=== PATIENT | male | born 1970 | race African-American/Black ===

== ENCOUNTER 2017-03-06 00:30 | Emergency (ER) | payer OTHER ==
[~2017-03-06] VITALS: Ht 182.9 cm; Wt 108.9 kg
[~2017-03-06 00:30] MED LIST: AMLO10TA4; ASPI81TA31 PO; TERA10CA4 PO
[2017-03-06] MEDS ORDERED: TELM40TA2 PO (00:50)
[2017-03-06 01:37] LABS: ALBUMIN 3.3 g/dL (3.4-5.0); BILIRUBIN,DIRECT 0.1 mg/dL (0.0-0.2); BILIRUBIN,TOTAL 0.2 mg/dL (0.2-1.0); CALCIUM 8.1 mg/dL (8.5-10.1); CREATININE 1.3 mg/dL (0.6-1.3); POTASSIUM 3.3 mmol/L (3.5-5.1); TOTAL PROTEIN, SERUM 7.3 g/dL (6.4-8.2)
[2017-03-06 01:39] LABS: BASOPHILS % (AUTO) 0.6 % (0.0-2.0); EOSINOPHILS # (AUTO) 0.4 K/uL (0.0-0.7); EOSINOPHILS % (AUTO) 8.2 % (0.0-7.0); HEMATOCRIT 41.1 % (40-50); HEMOGLOBIN 13.7 G/DL (14.0-18.0); LYMPHOCYTES # (AUTO) 1.7 K/uL (20.0-40.0); LYMPHOCYTES % (AUTO) 35.6 % (20.5-51.5); MEAN CORPUSCULAR HEMOGLOBIN 26.6 UUG (27.0-31.0); MEAN CORPUSCULAR HGB CONC 33 g/dL (32.0-37.0); MEAN CORPUSCULAR VOLUME 79.8 FL (82.0-92.0); MONOCYTES # (AUTO) 0.5 K/uL (2.0-10.0); MONOCYTES % (AUTO) 9.7 % (0.0-11.0); NEUTROPHILS # (AUTO) 2.2 K/uL (1.8-8.9); NEUTROPHILS % (AUTO) 45.9 % (38.5-71.5); PLATELET COUNT (AUTO) 162 K/UL (150-450); RED BLOOD CELL COUNT(AUTO) 5.15 MIL/UL (4.7-6.1); RED CELL DISTRIBUTION WIDTH 14.9 % (11.5-14.5); WHITE BLOOD COUNT (AUTO) 4.8 K/UL (4.0-11.2)
[2017-03-06 02:10] LABS: *BILIRUBIN,URIN NEGATIVE (NEGATIVE); *BLOOD, URINE NEGATIVE (NEGATIVE); *CLARITY,URINE CLEAR (CLEAR); *COLOR,URINE YELLOW (YELLOW); *KETONES,URINE NEGATIVE (NEGATIVE); *PROTEIN,URINE NEGATIVE (NEGATIVE); *UROBILINOGEN,URINE 0.2 E.U./dl (NORMAL); LEUKOCYTE ESTERASE ,URINE 1+ (NEGATIVE); NITRITE, URINE NEGATIVE (NEGATIVE); UGLUCOSE NEGATIVE (NEGATIVE)
[2017-03-06 02:14] LABS: BACTERIA,URINE FEW /HPF (NONE SEEN); RBC,URINE 0-3 /HPF (0-3); SQUAMOUS EPITHELIAL CELL,UR FEW /HPF (NONE SEEN)
[2017-03-06] MEDS ORDERED: CIPROFLOXACIN HCL 250 MG TABLET PO ONE (02:30)
[2017-03-06] MEDS ORDERED: POTASSIUM CHLORIDE 20 MEQ TAB.PRT.SR PO ONE (02:30)
[2017-03-06] MEDS ORDERED: CIPROFLOXACIN HCL 250 MG TABLET ONE (02:42)
[2017-03-06] MEDS ORDERED: POTASSIUM CHLORIDE 20 MEQ TAB.PRT.SR ONE (02:42)
--- NOTE | 2017-03-06 03:17 | NUR ---
Patient discharged to home in stable conditon. Written and verbal after care instructions given. Patient verbalizes understanding of instructions.
== END 2017-03-06 03:18 | disposition home or self-care (01) ==
LOC: ER 00:35
DX: N39.0 Urinary tract infection, site not specified (principal); K59.00 Constipation, unspecified; E87.6 Hypokalemia; D64.9 Anemia, unspecified; I10 Essential (primary) hypertension; E78.5 Hyperlipidemia, unspecified; Z79.82 Long term (current) use of aspirin
CPT/HCPCS: 36415; 83690; 85025; 87086; A4663

== ENCOUNTER 2017-08-28 21:21 | Emergency (ER) | payer OTHER ==
[~2017-08-28] VITALS: Ht 180.3 cm; Wt 106.6 kg
[~2017-08-28 21:21] MED LIST changes: +TELM40TA2 PO
[2017-08-28] MEDS ORDERED: HYDROCODONE/APAP 10-325 MG TABLET PO ONE (22:00)
[2017-08-28] MEDS ORDERED: ONDANSETRON ODT 4 MG TAB.RAPDIS SL ONE (22:00)
[2017-08-28 22:19] LABS: BASOPHILS % (AUTO) 0.7 % (0.0-2.0); EOSINOPHILS # (AUTO) 0.2 K/uL (0.0-0.7); EOSINOPHILS % (AUTO) 4.3 % (0.0-7.0); HEMATOCRIT 43.7 % (40-50); HEMOGLOBIN 14.1 G/DL (14.0-18.0); LYMPHOCYTES # (AUTO) 1.7 K/UL (0.8-4.8); LYMPHOCYTES % (AUTO) 30.1 % (20.5-51.5); MEAN CORPUSCULAR HEMOGLOBIN 26.1 UUG (27.0-31.0); MEAN CORPUSCULAR HGB CONC 32 g/dL (32.0-37.0); MEAN CORPUSCULAR VOLUME 80.8 FL (82.0-92.0); MONOCYTES # (AUTO) 0.5 K/UL (0.1-1.30); MONOCYTES % (AUTO) 8.2 % (0.0-11.0); NEUTROPHILS # (AUTO) 3.2 K/UL (1.8-8.9); NEUTROPHILS % (AUTO) 56.7 % (38.5-71.5); PLATELET COUNT (AUTO) 187 K/UL (150-450); RED BLOOD CELL COUNT(AUTO) 5.41 MIL/UL (4.7-6.1); WHITE BLOOD COUNT (AUTO) 5.6 K/UL (4.0-11.2)
[2017-08-28] MEDS ORDERED: HYDROCODONE/APAP 10-325 MG TABLET ONE (22:19)
[2017-08-28] MEDS ORDERED: ONDANSETRON ODT 4 MG TAB.RAPDIS ONE (22:19)
[2017-08-28 22:27] LABS: CREATININE 1.7 mg/dL (0.6-1.3); POTASSIUM 3.6 mmol/L (3.5-5.1)
[2017-08-28 22:39] LABS: BILIRUBIN,DIRECT 0.1 mg/dL (0.0-0.2); BILIRUBIN,TOTAL 0.4 mg/dL (0.2-1.0); TOTAL PROTEIN, SERUM 8.2 g/dL (6.4-8.2)
--- NOTE | 2017-08-28 23:15 | NUR ---
Pt resting in [facility] with NAD noted, u/s in progress.
--- NOTE | 2017-08-28 23:58 | NUR ---
Patient discharged to home in stable conditon. Written and verbal after care instructions given. Patient verbalizes understanding of instructions. Stressed follow up with pmd or return to ER for worsening s/s.
== END 2017-08-29 | disposition home or self-care (01) ==
LOC: ER 21:27
DX: M54.5 Low back pain (principal); R60.0 Localized edema; I10 Essential (primary) hypertension; N40.0 Benign prostatic hyperplasia without lower urinary tract symptoms; Z79.82 Long term (current) use of aspirin
CPT/HCPCS: 36415; 76775; 80048; 80076; 85025; 85651; 86140; 93970; 99285; A4663; Q0162

== ENCOUNTER 2019-03-15 20:07 | Emergency (ER) | payer OTHER ==
[~2019-03-15] VITALS: Ht 180.3 cm; Wt 106.6 kg
[2019-03-15] MEDS ORDERED: DEXAMETHASONE SOD PHOSPHATE 4 MG INJ IM ONE (21:00)
[2019-03-15] MEDS ORDERED: IBUPROFEN 800 MG TABLET PO ONE (21:00)
[2019-03-15] MEDS ORDERED: DEXAMETHASONE SOD PHOSPHATE 10 MG INJ ONE (21:05)
[2019-03-15] MEDS ORDERED: IBUPROFEN 800 MG TABLET ONE (21:05)
--- NOTE | 2019-03-15 21:11 | NUR ---
Patient discharged to home in stable conditon. Written and verbal after care instructions given. Patient verbalizes understanding of instructions. WALKED OUT OF ER WITH NO DISTRESS NOTED
[2019-03-15 21:12] VITALS: BP 120/82
== END 2019-03-15 21:18 | disposition home or self-care (01) ==
LOC: ER 20:07
DX: T78.3XXA Angioneurotic edema, initial encounter (principal); M62.08 Separation of muscle (nontraumatic), other site; I10 Essential (primary) hypertension; Z79.82 Long term (current) use of aspirin; Z79.899 Other long term (current) drug therapy
CPT/HCPCS: 96372; 99283; J1100; A4663

== ENCOUNTER 2021-05-02 04:36 | Emergency (ER) | payer OTHER ==
[~2021-05-02] VITALS: Ht 180.3 cm; Wt 106.6 kg
--- NOTE | 2021-05-02 04:55 | NUR ---
Dr. Kaye at bedside
[2021-05-02] MEDS ORDERED: HYDR-3972 PO (05:10)
[2021-05-02] MEDS ORDERED: GABA300C PO (05:10)
--- NOTE | 2021-05-02 05:17 | NUR ---
Patient discharged to home in stable condition. Written and verbal after care instructions given. Patient verbalizes understanding of instructions. Stressed follow up or return to ER for worsening s/s.
== END 2021-05-02 05:18 | disposition home or self-care (01) ==
LOC: ER 04:43
DX: G62.9 Polyneuropathy, unspecified (principal); N40.0 Benign prostatic hyperplasia without lower urinary tract symptoms; I10 Essential (primary) hypertension
CPT/HCPCS: A4663

== ENCOUNTER 2023-08-02 23:12 | Emergency (ER) | payer OTHER ==
[~2023-08-02] VITALS: Ht 180.3 cm; Wt 108.9 kg
[~2023-08-02 23:12] MED LIST changes: +GABA300C PO; +HYDR-3972 PO
[2023-08-02 23:51] LABS: *BILIRUBIN,URIN NEGATIVE (NEGATIVE); *BLOOD, URINE NEGATIVE (NEGATIVE); *CLARITY,URINE SLIGHTLY CLOUDY (CLEAR); *COLOR,URINE YELLOW (YELLOW); *KETONES,URINE NEGATIVE (NEGATIVE); *PROTEIN,URINE NEGATIVE (NEGATIVE); *UROBILINOGEN,URINE 0.2 E.U./dl (NORMAL); LEUKOCYTE ESTERASE ,URINE 1+ (NEGATIVE); NITRITE, URINE POSITIVE (NEGATIVE); UGLUCOSE NEGATIVE (NEGATIVE)
[2023-08-03 00:18] LABS: BACTERIA,URINE MANY /HPF (NONE SEEN); RBC,URINE 0-3 /HPF (0-3); SQUAMOUS EPITHELIAL CELL,UR NONE SEEN /HPF (NONE SEEN); WBC,URINE 20-50 /HPF (0-3)
[2023-08-03] MEDS ORDERED: CIPR-262 PO (01:14)
[2023-08-03] MEDS ORDERED: CIPROFLOXACIN HCL 250 MG TABLET PO ONE (01:15)
[2023-08-03] MEDS ORDERED: CIPR500T5 PO (01:21)
[2023-08-03] MEDS ORDERED: CIPROFLOXACIN HCL 250 MG TABLET ONE (01:26)
[2023-08-03 01:38] VITALS: BP 145/96; TEMP 98.5; O2SAT 98
== END 2023-08-03 01:39 | disposition home or self-care (01) ==
LOC: ER 23:16
DX: R30.0 Dysuria (principal); N39.0 Urinary tract infection, site not specified; I10 Essential (primary) hypertension; Z79.82 Long term (current) use of aspirin; Z79.2 Long term (current) use of antibiotics; Z79.899 Other long term (current) drug therapy
CPT/HCPCS: A4663

== ENCOUNTER 2024-07-02 22:17 | Emergency (ER) | payer SELFPAY ==
[~2024-07-02] VITALS: Ht 182.9 cm; Wt 106.6 kg
[~2024-07-02 22:17] MED LIST changes: +CIPR500T5 PO
--- NOTE | 2024-07-02 22:25 | NUR ---
at bedside for MSE
[2024-07-02 23:16] LABS: *BILIRUBIN,URIN NEGATIVE (NEGATIVE); *BLOOD, URINE TRACE (NEGATIVE); *CLARITY,URINE SLIGHTLY CLOUDY (CLEAR); *COLOR,URINE YELLOW (YELLOW); *KETONES,URINE NEGATIVE (NEGATIVE); *PROTEIN,URINE NEGATIVE (NEGATIVE); *UROBILINOGEN,URINE 0.2 E.U./dl (NORMAL); LEUKOCYTE ESTERASE ,URINE 1+ (NEGATIVE); NITRITE, URINE NEGATIVE (NEGATIVE); UGLUCOSE NEGATIVE (NEGATIVE)
[2024-07-02 23:57] LABS: BACTERIA,URINE MANY /HPF (NONE SEEN); RBC,URINE 0-3 /HPF (0-3); SQUAMOUS EPITHELIAL CELL,UR FEW /HPF (NONE SEEN); WBC,URINE 20-50 /HPF (0-3)
[2024-07-03] MEDS: CEFTRIAXONE 1 G VIAL IM ONE (00:31)
[2024-07-03] MEDS ORDERED: LIDOCAINE HCL 1% 20 ML VIAL ONE (00:31)
[2024-07-03] MEDS: NITROFURANTOIN/NITROFURAN MAC 100 MG CAPSULE PO ONE (00:31)
[2024-07-03] MEDS ORDERED: CEFTRIAXONE 1 G VIAL ONE (00:31)
[2024-07-03] MEDS ORDERED: NITR-84 PO (00:31)
[2024-07-03] MEDS ORDERED: NITROFURANTOIN/NITROFURAN MAC 100 MG CAPSULE PO ONE (00:31)
--- NOTE | 2024-07-03 00:45 | NUR ---
Patient discharged to home in stable condition on steady gait. Written and verbal after care instructions given. Patient verbalizes understanding of instructions. Stressed follow up or return to ER for worsening s/s.
[2024-07-03 00:48] VITALS: BP 130/84; TEMP 97.8; O2SAT 97
== END 2024-07-03 00:45 | disposition home or self-care (01) ==
LOC: ER 22:23
DX: N30.90 Cystitis, unspecified without hematuria (principal); N40.0 Benign prostatic hyperplasia without lower urinary tract symptoms; I10 Essential (primary) hypertension; Z79.891 Long term (current) use of opiate analgesic; Z79.82 Long term (current) use of aspirin; Z79.899 Other long term (current) drug therapy; Z60.2 Problems related to living alone
CPT/HCPCS: 99283; 81001; 96372; 87086; J0696; J3490; A4606; A4663

== ENCOUNTER 2024-07-24 21:52 | Emergency (ER) | payer SELFPAY ==
[~2024-07-24] VITALS: Ht 182.9 cm; Wt 106.6 kg
[~2024-07-24 21:52] MED LIST changes: +NITR-84 PO
[2024-07-24 21:55] VITALS: O2SAT 98
[2024-07-24 22:40] LABS: *BILIRUBIN,URIN NEGATIVE (NEGATIVE); *BLOOD, URINE 2+ (NEGATIVE); *CLARITY,URINE CLOUDY (CLEAR); *COLOR,URINE YELLOW (YELLOW); *KETONES,URINE TRACE (NEGATIVE); *PROTEIN,URINE 1+ (NEGATIVE); *UROBILINOGEN,URINE 0.2 E.U./dl (NORMAL); LEUKOCYTE ESTERASE ,URINE 3+ (NEGATIVE); NITRITE, URINE NEGATIVE (NEGATIVE); PH,URINE 5.5 (5.0-8.0); UGLUCOSE NEGATIVE (NEGATIVE)
[2024-07-24 22:46] LABS: WBC,URINE 50-80 /HPF (0-3)
[2024-07-24 22:47] LABS: BACTERIA,URINE MODERATE /HPF (NONE SEEN); MUCUS,URINE MODERATE /LPF (0-FEW); SQUAMOUS EPITHELIAL CELL,UR NONE SEEN /HPF (NONE SEEN)
== END 2024-07-24 22:58 | disposition left against medical advice (07) ==
LOC: ER 22:00
DX: N39.0 Urinary tract infection, site not specified (principal); R30.0 Dysuria; N40.1 Benign prostatic hyperplasia with lower urinary tract symptoms; I10 Essential (primary) hypertension; Z79.891 Long term (current) use of opiate analgesic; Z79.899 Other long term (current) drug therapy; Z60.2 Problems related to living alone
CPT/HCPCS: A4606; A4663